=== PATIENT | female | born 1970 ===

== ENCOUNTER → 2019-09-10 | Outpatient (CLI) | payer OTHER ==
[~2019-09-10] VITALS: Ht 152.4 cm; Wt 68.0 kg
[~2019-09-10] MED LIST: FIORICET PO; GABAPEN PO; PLAQUENIL PO; TAMOXIFEN CITRA20 MG PO; VIT D PO; WELLBUTRIN SR150 MG PO; [UNRECOGNIZED DRUG - OTHER] PO
== END | disposition home or self-care (01) ==
LOC: EKG 06:00 → O/R 09-16 11:30 → EDSTATUS 09-16 11:30 → SURH 09-16 11:30
DX: D25.9 Leiomyoma of uterus, unspecified (principal); Z01.818 Encounter for other preprocedural examination; D64.89 Other specified anemias; N39.0 Urinary tract infection, site not specified; R79.1 Abnormal coagulation profile; C50.811 Malignant neoplasm of overlapping sites of right female breast; C50.812 Malignant neoplasm of overlapping sites of left female breast

== ENCOUNTER 2019-12-19 07:45 | Inpatient (IN) | payer OTHER ==
[~2019-12-19] VITALS: Ht 154.9 cm; Wt 64.9 kg
[2019-12-19] MEDS ORDERED: XANAX0.25 MG PO (09:31)
[2020-01-16] MEDS ORDERED: RESTORIL30 MG PO (09:19)
[2020-01-16] MEDS ORDERED: GABAPENTIN400 MG (09:23)
[2020-01-16] MEDS ORDERED: GABAPENTIN800 M1 PO (10:06)
[2020-01-16] MEDS ORDERED: HYDROXYCHLOROQ200 MG PO (10:08)
[2020-01-16] MEDS ORDERED: BUTALBIT-ACETA1 EACH PO (10:09)
[2020-01-16] MEDS ORDERED: VITAMIN D325 MC2 (10:10)
== END 2020-01-17 12:12 | DRG 743 ==
LOC: O/R 12-26 07:45 → OB/GYN 01-16 10:55
PROVIDERS: ADMIT Obstetrics & Gynecology Gynecologic Oncology; ATTEND Obstetrics & Gynecology Gynecologic Oncology
PROC: 0UT74ZZ Resection of Bilateral Fallopian Tubes, Percutaneous Endoscopic Approach (ICD-10-PCS; 2020-01-16)
PROC: 0UT24ZZ Resection of Bilateral Ovaries, Percutaneous Endoscopic Approach (ICD-10-PCS; 2020-01-16)
PROC: 0DNW4ZZ Release Peritoneum, Percutaneous Endoscopic Approach (ICD-10-PCS; 2020-01-16)
PROC: 0UT94ZZ Resection of Uterus, Percutaneous Endoscopic Approach (ICD-10-PCS; principal; 2020-01-16 07:00)
DX: D25.1 Intramural leiomyoma of uterus (principal); D25.0 Submucous leiomyoma of uterus; N72 Inflammatory disease of cervix uteri